=== PATIENT | male | born 1940 | race Caucasian/White ===

== ENCOUNTER 2018-04-13 00:48 | Emergency (ER) | payer MEDICARE, MEDICAID ==
[~2018-04-13] VITALS: Ht 177.8 cm; Wt 104.3 kg
[2018-04-13] MEDS ORDERED: PRINIVIL20 MG PO (01:12)
[2018-04-13] MEDS ORDERED: LOMOTIL TABLET1 EACH PO (01:12)
[2018-04-13] MEDS ORDERED: LANTUS100 UNIT/M SUBQ (01:13)
[2018-04-13] MEDS ORDERED: AMOXICILLIN 50500 MG PO (01:14)
[2018-04-13] MEDS ORDERED: NOVOLOG100 UNIT/1 SUBQ (01:14)
[2018-04-13 01:22] LABS: ABSOLUTE BASOPHILS 0.2 thou/uL (0.0-0.2); ABSOLUTE EOSINOPHILS 0.2 thou/uL (0.0-0.7); ABSOLUTE LYMPHOCYTES 4.4 thou/uL (0.8-5.3); ABSOLUTE NEUTROPHILS 5.9 thou/uL (1.6-8.1); BASOPHILS 2.1 %; EOSINOPHILS 1.9 %; HEMOGLOBIN 14.6 gm/dL (14.0-18.0); LYMPHOCYTES 37.4 %; MCH 28.4 pg (26.0-34.0); MCHC 33.2 g/dL (28.0-37.0); MCV 85.6 fL (80.0-100.0); MONOCYTES 8.8 %; MPV 9.1 fl. (7.2-11.1); NUCLEATED RBCS 0 /100WBC; PLATELET COUNT* 235 thou/uL (150-400); POLYS 49.8 %; RBC 5.14 mil/uL (4.50-6.00); RDW-CV 13.4 % (10.5-14.5); WBC 11.8 thou/uL (4.0-11.0)
[2018-04-13 01:27] LABS: ANION GAP 8 mmol/L (7-16); BUN 23 mg/dL (7-18); CALCIUM 8.8 mg/dL (8.5-10.1); CHLORIDE 97 mmol/L (98-107); CO2 27 mmol/L (21-32); CREATININE 1.3 mg/dL (0.6-1.3); GLUCOSE 224 mg/dL (70-99); POTASSIUM 4.1 mmol/L (3.5-5.1); SODIUM 132 mmol/L (136-145)
[2018-04-13 01:37] LABS: ALBUMIN 3.8 g/dL (3.4-5.0); ALKALINE PHOSPHATASE 68 U/L (46-116); LIPASE 109 U/L (73-393); NT-PRO BRAIN NAT PEPTIDE 162 pg/mL (<300); SGOT 21 U/L (15-37); SGPT 39 U/L (30-65); TOTAL BILIRUBIN 0.3 mg/dL (<0.1-1.0); TOTAL PROTEIN 7.8 g/dL (6.4-8.2); TROPONIN-I LEVEL <0.06 ng/mL (<0.06)
[2018-04-13 02:07] VITALS: BP 128/53
--- NOTE | 2018-04-13 11:42 | EKG ---
[place] [address] ELECTROCARDIOGRAM REPORT Name: VARGHESE MCKEON [id number] Admission: 04/13/18 Attend Phys: Discharge: 04/13/18 Date of : 42 Report #: [id number] THIS REPORT FOR: //name// [facility] ED Test Date: 2018-04-13 Test Time: 00:55:01 Pat Name: VARGHESE MCKEON Department: Room: Gender: M Cooler Man: RODRIGO : 1940 Requested By: Jacinto Fernandez Order Number: [id number] MD: Michael Stuart Measurements Intervals [place] Rate: 94 P: 54 NV: 176 QRS: -61 QRSD: 139 T: 20 QT: 397 QTc: 497 Interpretive Statements Sinus rhythm Ventricular bigeminy RBBB and LAFB Baseline wander in lead(s) V2 No previous ECG available for comparison Electronically Signed On 04-13-2018 11:41:48 CDT by Michael Stuart [email or web address] <ELECTRONICALLY SIGNED> By: Michael Stuart MD, [facility] 04/13/18 1141 0055 0055 Michael Stuart MD, FAC /EPI
== END 2018-04-13 02:14 | disposition home or self-care (01) ==
LOC: M.ERS 00:48
PROVIDERS: Emergency Medicine
DX: R00.2 Palpitations (principal); E11.9 Type 2 diabetes mellitus without complications; Z79.4 Long term (current) use of insulin